=== PATIENT | male | born 1975 | race Caucasian/White ===

== ENCOUNTER 2018-09-08 23:53 | Emergency (ER) | payer OTHER ==
[~2018-09-08] VITALS: Ht 180.3 cm; Wt 132.3 kg
[2018-09-09] VITALS: Ht 180.3 cm; Wt 132.3 kg
[2018-09-09] MEDS ORDERED: ONDANSETRON 4 MG INJ IV STA (01:04)
[2018-09-09] MEDS ORDERED: HYDROmorphONE 1 MG/ML SYG IV STA (01:04)
[2018-09-09] MEDS ORDERED: SOD CHLORIDE 0.9% 1,000 ML IV STA (01:04)
[2018-09-09] MEDS ORDERED: ONDA4TAB14 PO (02:20)
[2018-09-09] MEDS ORDERED: TRAM50TA2 PO (02:20)
--- NOTE | 2018-09-09 02:29 | ERD ---
ER Documentation Chief Complaint Chief Complaint bib ra [id number] c/o right upper abd pain x 1 day, hx of gallstone HPI Is a 42-year male brought in by rescue for complaint of right upper quadrant pain for 1 day. Patient has history of gallstones. He said the pain started after he had lasagna pizza. He was unaware that was on the impedes are considered fatty foods. ROS All systems reviewed and are negative except as per history of present illness. Medications Home Meds Active Scripts Ondansetron (Ondansetron Odt) 4 Mg Tab.rapdis, 4 MG PO Q6H PRN for NAUSEA AND/OR VOMITING, #10 TAB Prov:BOB MCCLURE. 09/09/18 Tramadol HCl (Tramadol HCl) 50 Mg Tablet, 50 MG PO Q4 PRN for PAIN, #20 TAB Prov:BBO MCCLURE S. 09/09/18 Allergies Allergies: Coded Allergies: No Known Drug Allergies (Verified Allergy, Unknown, 09/09/18) PMhx/Soc Medical and Surgical Hx: pt denies Surgical Hx History of Surgery: Yes (RIGHT GROIN SURGERY 2008) Anesthesia Reaction: No Hx Neurological Disorder: No Hx Respiratory Disorders: No Hx Cardiac Disorders: Yes (HTN) Hx Psychiatric Problems: No Hx Miscellaneous Medical Probl: No Hx Alcohol Use: Yes (SOCIALLY) Hx Substance Use: No Hx Tobacco Use: Yes Smoking Status: Current some day smoker Physical Exam Vitals Vital Signs Date Temp Pulse Resp B/P (MAP) Pulse Ox O2 O2 Flow FiO2 Time Delivery Rate 09/09/18 93 18 132/100 100 Room Air 01:03 (111) 09/09/18 98.8 103 20 180/100 98 00:00 (126) Physical Exam Const: No acute distress Head: Atraumatic Eyes: Normal Conjunctiva ENT: Normal External Ears, Nose and Mouth. Neck: Full range of motion. No meningismus. Resp: Clear to auscultation bilaterally Cardio: Regular rate and rhythm, no murmurs Abd: Soft, non tender, non distended. Normal bowel sounds Skin: No petechiae or rashes Back: No midline or flank tenderness Ext: No cyanosis, or edema Neur: Awake and alert Psych: Normal Mood and Affect Result Diagram: 09/09/18 0100 09/09/18 0100 Results 24 hrs Laboratory Tests Test 09/09/18 01:00 White Blood Count 11.5 10^3/ul Red Blood Count 5.48 10^6/ul Hemoglobin 16.5 g/dl Hematocrit 46.0 % Mean Corpuscular Volume 83.9 fl Mean Corpuscular Hemoglobin 30.1 pg Mean Corpuscular Hemoglobin Concent 35.9 g/dl Red Cell Distribution Width 11.9 % Platelet Count 209 10^3/UL Mean Platelet Volume 9.9 fl Immature Granulocytes % 0.800 % Neutrophils % 71.3 % Lymphocytes % 19.6 % Monocytes % 6.1 % Eosinophils % 1.6 % Basophils % 0.6 % Nucleated Red Blood Cells % 0.0 /100WBC Immature Granulocytes # 0.090 10^3/ul Neutrophils # 8.2 10^3/ul Lymphocytes # 2.3 10^3/ul Monocytes # 0.7 10^3/ul Eosinophils # 0.2 10^3/ul Basophils # 0.1 10^3/ul Nucleated Red Blood Cells # 0.0 10^3/ul Urine Color YELLOW Urine Clarity SLIGHTLY CLOUDY Urine pH 5.0 Urine Specific [place] 1.021 Urine Ketones NEGATIVE mg/dL Urine Nitrite NEGATIVE mg/dL Urine Bilirubin NEGATIVE mg/dL Urine Urobilinogen 1+ mg/dL Urine Leukocyte Esterase NEGATIVE Ifeoma/ul Urine Microscopic RBC 1 /HPF Urine Microscopic WBC 3 /HPF Urine Mucus FEW /HPF Urine Hemoglobin 1+ mg/dL Urine Glucose NEGATIVE mg/dL Urine Total Protein 1+ mg/dl Sodium Level 143 mmol/L Potassium Level 3.8 mmol/L Chloride Level 105 mmol/L Carbon Dioxide Level 28 mmol/L Anion Gap 10 Blood Urea Nitrogen 18 mg/dl Creatinine 0.79 mg/dl Est Glomerular Filtrat Rate mL/min > 60 mL/min Glucose Level 155 mg/dl Calcium Level 9.3 mg/dl Total Bilirubin 0.5 mg/dl Direct Bilirubin 0.00 mg/dl Indirect Bilirubin 0.5 mg/dl Aspartate Amino Transf (AST/SGOT) 126 IU/L Alanine Aminotransferase (ALT/SGPT) 84 IU/L Alkaline Phosphatase 79 IU/L Total Protein 7.7 g/dl Albumin 4.2 g/dl Globulin 3.50 g/dl Albumin/Globulin Ratio 1.20 Lipase 375 U/L Current Medications Medications Dose Sig/Jv Start Time Status Last (Trade) Ordered Route PRN Stop Time Admin Dose Reason Admin Sodium 1,000 ml @ Q1H STAT 09/09/18 DC 09/09/18 Chloride 1,000 mls/hr IV 01:04 01:08 09/09/18 02:03 1 mg ONCE STAT 09/09/18 DC 09/09/18 Hydromorphone IV 01:04 01:09 HCl 09/09/18 01:05 (Dilaudid) Ondansetron 4 mg ONCE STAT 09/09/18 DC 09/09/18 HCl (Zofran IV 01:04 01:09 Inj) 09/09/18 01:05 Procedures/MDM Medical decision making: Patient's gastrointestinal symptoms have stabilized while in the department. No evidence of severe dehydration, sepsis, or surgical abdomen. Extensive discussion with family and patient that occult disease cannot be ruled out. 8 hour recheck for repeat abdominal exam is planned. Departure Diagnosis: Primary Impression: Abdominal pain Abdominal location: right upper quadrant Qualified Codes: R10.11 - Right upper quadrant pain Condition: Stable Patient Instructions: Gallstones BOB MCCLURE Sep 09, 2018 02:29
[2018-09-09 03:24] VITALS: BP 148/95; PULSE 92; RESP 18
[2018-09-09] MEDS ORDERED: ATOR20TA65 PO (04:16)
[2018-09-09] MEDS ORDERED: LOSA50TA14 PO (04:16)
== END 2018-09-09 03:26 | disposition home or self-care (01) ==
LOC: E/R 23:53
DX: R10.11 Right upper quadrant pain (principal); F17.210 Nicotine dependence, cigarettes, uncomplicated; I10 Essential (primary) hypertension
CPT/HCPCS: 36415; 76705; 80053; 81001; 83690; 85025; 96361; 96374; 96375; J1170; J2405; J7030; Z7502